=== PATIENT | female | born 1965 | race Caucasian/White ===

== ENCOUNTER 2016-07-27 10:39 | Emergency (ER) | payer OTHER ==
[~2016-07-27] VITALS: Ht 167.6 cm; Wt 71.0 kg
[~2016-07-27 10:39] MED LIST: Bactrim,Septra Singl PO; CALTRATE 6001 TABLE2 PO; CEFTIN500 MG PO; CIPRO500 M1 PO; CLEOCIN300 MG PO; DILAUDID2 MG PO; FENTANYL PO; FLONASE16 G1 BOTH NARES; GABAPENTIN600 MG PO; GLEEVEC100 MG PO; GLEEVEC400 MG PO; GUAIFENESIN AC473 ML PO; KLONOPIN0.5 M1 PO; KlonoPIN PO; Lactinex,Floranex PO; Levaquin PO; Magnesium PO; NEURONTIN300 MG PO; NOHOMEMEDS; Neurontin PO; PRILOSEC20 MG PO; PROTONIX40 MG PO; SPRYCEL100 MG PO; SPRYCEL70 MG PO; Tylenol Regular Stre PO; VALACYCLOVIR500 MG PO; VALTREX50 MG/ML PO; VITAMIN B122500 MCG PO; ValTRex PO; ZOFRAN ODT8 MG PO; ZOFRAN8 MG PO
[2016-07-27 12:11] LABS: HEMATOCRIT 37.3 % (36.0-46.0); MCH 32.6 PG (29.0-34.0); MCHC 32.2 G/DL (30.0-36.0); MCV 101.4 FL (83-99); MEAN PLAT.VOLUME 9.7 uM^3 (9.5-12.4); PLATELET COUNT 306 K/uL (156-360); RBC DIS.WIDTH-CV 15.6 % (11.8-14.6); RBC DIS.WIDTH-SD 58.4 % (39-53); RED BLOOD COUNT 3.68 M/uL (3.80-5.20); WHITE BLOOD COUNT 8.2 K/uL (4.1-10.2)
[2016-07-27 12:21] LABS: CHLORIDE 98 mEq/L (99-109); POTASSIUM 3.9 mEq/L (3.7-5.4); SODIUM 133 mEq/L (136-147)
[2016-07-27 12:23] LABS: GLUCOSE 80 mg/dL (70-99)
[2016-07-27 12:25] LABS: ANION GAP 16 MEQ/L (2-14); TOTAL BILIRUBIN 0.3 mg/dL (0.0-1.0)
[2016-07-27 12:27] LABS: ALKALINE PHOSPHATASE 69 IU/L (3-129); GFR ESTIMATE (CALCULATED) 51 mL/min/
[2016-07-27 12:28] LABS: UREA NITROGEN (BUN) 27 mg/dL (9-23)
[2016-07-27 13:35] LABS: ADD MIUA? YES; BILIRUBIN NEGATIVE; BLOOD SMALL; COLOR STRAW ((YELLOW)); GLUCOSE (STRIP) NEGATIVE; KETONES 5; LEUKOCYTES MODERATE; NITRITE NEGATIVE; PROTEIN (STRIP) 30; SPECIFIC GRAVITY 1.005 (1.000-1.030); UROBILINOGEN 0.2 MG/DL (0.2-1.0)
[2016-07-27 14:13] LABS: BACTERIA NONE SEEN /HPF; EPITHELIAL CELLS RARE /HPF; GRANULAR CASTS 0-5 /LPF; MUCUS TRACE /LPF; UCUL ADDED? NO; WHITE BLOOD CELLS 20-30 /HPF (0-5)
[2016-07-27] MEDS ORDERED: KEFLEX500 MG PO (14:44)
[2016-07-27] MEDS ORDERED: ZOFRAN4 MG PO (14:45)
[2016-07-27 15:42] VITALS: BP 116/61
== END 2016-07-27 15:43 | disposition home or self-care (01) ==
LOC: EME 10:39
DX: K52.9 Noninfective gastroenteritis and colitis, unspecified (principal); N39.0 Urinary tract infection, site not specified; C95.00 Acute leukemia of unspecified cell type not having achieved remission; Z79.899 Other long term (current) drug therapy; Z94.81 Bone marrow transplant status
CPT/HCPCS: 80053; 81003; 85027; 99281; 99284; J7030